=== PATIENT | male | born 1975 | race Caucasian/White ===

== ENCOUNTER 2019-07-17 21:21 | Emergency (ER) | payer BC ==
[2019-07-17] MEDS ORDERED: Amoxicillin PO (*) 500 MG CAP PO ONE (21:42)
--- NOTE | 2019-07-17 21:45 | UC ---
Throat Pain/Nasal [place] HPI - HPI Summary HPI Summary: Comes in with a chief complaint of sore throat and right ear pain. Set of sore throat for about 6 days. Now is having pain in the right ear. No chest congestion. Pain is worse with swallowing. - History of Current Complaint Stated Complaint: SORE THROAT Time Seen by Provider: 07/17/19 21:41 - Allergies/Home Medications Allergies/Adverse Reactions: Allergies Allergy/AdvReac Type Severity Reaction Status Date / Time No Known Allergies Allergy Verified 07/17/19 21:48 Home Medications: Home Medications Ergocalciferol (Vitamin D2) [Vitamin D2] 1 tab PO WEEKLY 07/17/19 [History Confirmed 07/17/19] Furosemide TAB* [Lasix TAB*] 1 tab PO DAILY 07/17/19 [History Confirmed 07/17/19 ] Omeprazole 1 tab PO DAILY 07/17/19 [History Confirmed 07/17/19] Potassium Chlor TAB* [Potassium Chlor TAB 20 MEQ*] 1 tab PO DAILY 07/17/19 [ History Confirmed 07/17/19] PMH/Surg Hx/FS Hx/Imm Hx Previously Healthy: Yes - Surgical History Surgical History: Yes Surgery Procedure, Year, and Place: APPENDECTOMY - Family History Known Family History: Positive: Cardiac Disease - Social History Alcohol Use: Occasionally Substance Use Type: None Smoking Status (MU): Never Smoked Tobacco Type: Smokeless Tobacco Have You Smoked in the Last Year: No Review of Systems All Other Systems Reviewed And Are Negative: Yes Constitutional: Positive: Negative Skin: Positive: Negative Eyes: Positive: Negative ENT: Positive: Sore Throat, Ear Ache, Nasal Discharge Respiratory: Positive: Negative Cardiovascular: Positive: Negative Gastrointestinal: Positive: Negative Motor: Positive: Negative Neurovascular: Positive: Negative Musculoskeletal: Positive: Negative Neurological: Positive: Negative Psychological: Positive: Negative Is Patient Immunocompromised?: No Physical Exam Triage Information Reviewed: Yes Appearance: Well-Appearing, No Pain Distress, Well-Nourished Vital Signs Reviewed: Yes Eye Exam: Normal Eyes: Positive: Conjunctiva Clear ENT: Positive: TM bulging - rt, TM red - rt, Tonsillar swelling, Tonsillar exudate Neck: Positive: Supple Respiratory: Positive: Lungs clear, Normal breath sounds, No respiratory distress Cardiovascular: Positive: RRR Musculoskeletal: Positive: Strength Intact, ROM Intact Neurological: Positive: Alert, Muscle Tone Normal Psychological: Positive: Age Appropriate Behavior Skin Exam: Normal Throat Pain/Nasal Course/Dx - Differential Dx/Diagnosis Provider Diagnosis: Right serous otitis media, Tonsillitis Discharge - Sign-Out/Discharge Documenting (check all that apply): Patient Departure All imaging exams completed and their final reports reviewed: No Studies - Discharge Plan Condition: Stable Disposition: HOME Patient Education Materials: Serous Otitis Media (ED) Referrals: Eden Bentley MD [Primary Care Provider] - Additional Instructions: FOLLOW UP WITH YOUR DOCTOR IF NOT COMPLETELY IMPROVED. GET REEVALUATED SOONER IF WORSE OR ANY QUESTIONS OR CONCERNS. - Billing Disposition and Condition Condition: STABLE Disposition: Home
[2019-07-17 21:48] VITALS: BP 133/80
== END 2019-07-17 21:57 | disposition home or self-care (01) ==
LOC: UCCORT 21:21
DX: H65.01 Acute serous otitis media, right ear (principal); J03.90 Acute tonsillitis, unspecified
CPT/HCPCS: 99212; A9270-GY; G0463